=== PATIENT | female | born 1940 | race Caucasian/White ===

== ENCOUNTER → 2020-03-18 | Day surgery (SDC) | payer MEDICARE, OTHER ==
[~2020-03-18] MED LIST: COLESEVELAM HC625 MG PO; NORCO 5-325 TA1 EAC2 PO
--- NOTE | ~2020-03-18 | OP ---
[facility] [address] [place] [address] OPERATIVE REPORT Name: RUTH ANN SANCHEZ Saul Room: [facility].#: [id number] Admission: 03/18/20 Attend Phys: Rufus Roberts Discharge: Date of : 42 Report #: [id number] THIS REPORT FOR: //name// cc: ALFONSO CANTOR NP, RUTENDO NP ~ CC: Rufus CANTOR DATE OF SERVICE: 03/18/2020 PREOPERATIVE DIAGNOSIS: Appendiceal mass. POSTOPERATIVE DIAGNOSIS: Appendiceal mass. OPERATION: Laparoscopic appendectomy. SURGEON: Rufus Roberts MD ANESTHESIA: General. ESTIMATED BLOOD LOSS: Minimal. SPECIMEN: Appendix. DESCRIPTION OF PROCEDURE: After informed consent was obtained, the patient was brought to the operating room and placed supine. SCDs were placed and working, preoperative antibiotics were administered, general anesthesia was induced. The abdomen was prepped and draped in the usual sterile fashion. A 5 mm incision was made in the left upper quadrant. A 5 mm trocar was placed under direct vision. Pneumoperitoneum was established. A right-sided 10 mm trocar and a left-sided 5 mm trocar was placed. The appendix was visualized in the right lower quadrant. It had a mucinous mass at the tip. The appendix was then grasped and retracted anteriorly. The mesoappendix was ligated with a DRU choi load stapler. The base of the appendix was stapled off with a DRU blue load stapler. It was placed into an Endopouch and removed. The fascia in the right upper quadrant was closed with a pjdxod-tv-kfdzv 0 Vicryl. Skin was closed with 4-0 Monocryl. Incisions were sealed with Dermabond. COMPLICATIONS: [place] [address] OPERATIVE REPORT Name: RUTH ANN SANCHEZ Room: [facility]#: [id number] Admission: 03/18/20 Attend Phys: Rufus Roberts Discharge: Date of : 42 Report #: [id number] DISPOSITION: The patient was taken to recovery in satisfactory condition. By: 1113 1119Rufus Roberts MD /john
[2020-03-18 09:03] LABS: HEMATOCRIT 40.1 % (37.0-47.0); HEMOGLOBIN 13.6 gm/dL (12.0-15.0); MCH 30.4 pg (26.0-34.0); MCHC 33.8 g/dL (28.0-37.0); MCV 89.8 fL (80.0-100.0); MPV 6.8 fl. (7.2-11.1); RBC 4.47 mil/uL (4.20-5.00); RDW-CV 14.5 % (10.5-14.5); WBC 6.5 thou/uL (4.0-11.0)
[2020-03-18 09:05] LABS: CALCIUM 9.4 mg/dL (8.5-10.1); CREATININE 1.1 mg/dL (0.6-1.3); POTASSIUM 4.2 mmol/L (3.5-5.1)
--- NOTE | 2020-03-18 13:08 | EKG ---
[place] [address] ELECTROCARDIOGRAM REPORT Name: RUTH ANN SANCHEZ Room: [facility]#: [id number] Admission: 03/18/20 Attend Phys: Rufus Mcelroy Discharge: Date of : 42 Date of Service: 03/18/20 1259 Report #: [id number] THIS REPORT FOR: //name// [facility] Test Date: 2020-03-18 Test Time: 12:59:52 Pat Name: RUTH ANN SANCHEZ Department: Room: Gender: Product Scientist: : 1940 Requested By: Rufus Roberts Order Number: [id number] MD: Hakan Humphreys Measurements Intervals [place] Rate: 57 P: 85 [place]: 139 QRS: 44 QRSD: 81 T: 70 QT: 447 QTc: 436 Interpretive Statements Sinus rhythm No previous ECG available for comparison Electronically Signed On 03-18-2020 13:08:14 CDT by Hakan Humphreys [email or web address] <ELECTRONICALLY SIGNED> By: Hakan Humphreys MD, [facility] 03/18/20 1308 1259 58 Hakan Humphreys MD, FACC /EPI
--- NOTE | 2020-03-18 16:01 | EKG ---
[place] [address] ELECTROCARDIOGRAM REPORT Name: RUTH ANN SANCHEZ Room: [facility]#: [id number] Admission: 03/18/20 Attend Phys: Rufus Mcelroy Discharge: Date of : 42 Date of Service: 03/18/20914 Report #: [id number] THIS REPORT FOR: //name// [facility] Test Date: 2020-03-18 Test Time: 09:15:36 Pat Name: RUTH ANN SANCHEZ Department: Room: Gender: Seasonal Warehouse Associate: ALESSANDRA : 1940 Requested By: Anne-Marie Carmen Order Number: [id number] MD: Eldon Thompson Measurements Intervals [place] Rate: 78 P: 87 MO: 128 QRS: -3 QRSD: 82 T: 63 QT: 380 QTc: 433 Interpretive Statements Sinus rhythm No previous ECG available for comparison Electronically Signed On 03-18-2020 16:01:41 CDT by Eldon Thompson [email or web address] <ELECTRONICALLY SIGNED> By: Eldon Thompson MD, [facility] 03/18/20 1601 4 4 Eldon Thompson MD, FACC /EPI
== END | disposition home or self-care (01) ==
LOC: M.SUR
PROVIDERS: ATTEND Surgery
DX: K38.8 Other specified diseases of appendix (principal); Z79.899 Other long term (current) drug therapy; Z98.890 Other specified postprocedural states

== ENCOUNTER → 2020-05-19 | Outpatient (CLI) | payer MEDICARE, OTHER ==
[~2020-05-19] MED LIST changes: +VITAMIN D325 MC3 PO; +ZINC SULFATE220 MG PO
== END ==
LOC: M.LAB 08:45
PROVIDERS: ATTEND Surgery
DX: Z01.812 Encounter for preprocedural laboratory examination (principal); Z20.828 Contact with and (suspected) exposure to other viral communicable diseases; R19.00 Intra-abdominal and pelvic swelling, mass and lump, unspecified site

== ENCOUNTER 2020-05-24 06:09 | Inpatient (IN) | payer MEDICARE, OTHER ==
[~2020-05-24] VITALS: Ht 162.6 cm; Wt 59.0 kg
[2020-05-24 06:53] LABS: ABSOLUTE EOSINOPHILS 0.1 thou/uL (0.0-0.7); ABSOLUTE LYMPHOCYTES 1.9 thou/uL (0.8-5.3); ABSOLUTE MONOCYTES 0.5 thou/uL (0.0-1.2); ABSOLUTE NEUTROPHILS 2.8 thou/uL (1.6-8.1); BASOPHILS 0.8 %; EOSINOPHILS 1.6 %; HEMATOCRIT 36.7 % (37.0-47.0); LYMPHOCYTES 34.6 %; MCH 29.4 pg (26.0-34.0); MCHC 32.6 g/dL (28.0-37.0); MCV 90.4 fL (80.0-100.0); MONOCYTES 10.1 %; MPV 6.7 fl. (7.2-11.1); NUCLEATED RBCS 0 /100WBC; PLATELET COUNT* 243 thou/uL (150-400); POLYS 52.9 %; RBC 4.06 mil/uL (4.20-5.00); RDW-CV 14.1 % (10.5-14.5); WBC 5.3 thou/uL (4.0-11.0)
[2020-05-24 07:00] LABS: CALCIUM 8.8 mg/dL (8.5-10.1); CREATININE 0.9 mg/dL (0.6-1.3); POTASSIUM 3.8 mmol/L (3.5-5.1)
[2020-05-24 07:17] VITALS: BP 149/84
[2020-05-24 11:17] VITALS: BP 115/60
--- NOTE | 2020-05-24 11:23 | NUR ---
PT ADMITTED. PT RESTING IN BED. FALL RISK PRECAUTIONS IN PLACE. HOURLY ROUNDING COMPLETED. WILL CONTINUE TO MONITOR.
--- NOTE | 2020-05-24 12:35 | OP ---
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 OPERATION: Laparoscopic ileocecectomy. SURGEON: Rufus Roberts MD ANESTHESIA: General. ESTIMATED BLOOD LOSS: 20 mL. SPECIMEN: Cecum and terminal ileum. DESCRIPTION OF PROCEDURE: After informed consent was obtained, the patient was brought to the operating room and placed supine. SCDs were placed and working, preoperative antibiotics were administered, general anesthesia was induced. The abdomen was prepped and draped in the usual sterile fashion. This was after a Judd catheter was placed. A laparoscope was inserted and an epigastric 5 mm port and a lower quadrant 5 mm port were placed. The right colon was then visualized. It was retracted medially. I incised white line of Toldt. This allowed for medial mobilization of the cecum and ascending colon. The lateral attachments of the terminal ileum were taken down with the cautery. This allowed for good movement of the cecum. The laparoscope was removed. I then extended the incision at the umbilicus superiorly approximately 2 cm. A wound protector was placed. I exteriorized the cecum and the terminal ileum. Cecum was then transected with a DRU blue load stapler taking approximately 6 cm of cecum. Ten centimeters of ileum were measured off and the small bowel was transected at that site. The mesentery was ligated using the LigaSure device. The specimen was removed. The side eehw-zt-aoat functional end-to-end anastomosis was then created. The terminal ileum and the colon were brought into apposition [id number] [address] OPERATIVE REPORT Name: RUTH ANN SANCHEZ Room: [address] IN [facility].#: [id number] Admission: 05/24/20 Attend Phys: Rufus Roberts Discharge: Date of : 42 Report #: [id number] stapled with a DRU-75 stapler. The common enterocolostomy was then stapled off with a DRU blue load stapler as well. The anastomosis was widely patent. There were no crossing staple lines. The anastomosis was then placed back into the abdomen. The fascia was then closed with a running 0 PDS. The skin was then closed with 4-0 Monocryl. Incisions were dressed with Steri-Strips and gauze. COMPLICATIONS: None. DISPOSITION: The patient was taken to recovery in satisfactory condition. <ELECTRONICALLY SIGNED> By: Rufus Roberts MD 05/24/20 1235 0915 [id number] Roberts MD /nt
[2020-05-24 15:36] VITALS: BP 120/60
--- NOTE | 2020-05-24 17:15 | NUR ---
PT REMAINED ALERT AND ORIENTED. PT WAS DROWSY UPON ADMITTANCE TO FLOOR. PT WOKE UP UPSET STATING NO ONE HAD BEEN IN HER ROOM ALL DAY, WHEN ASKING PATIENT IF SHE REMEMBERED ME OR THE OTHER NURSE IN HER ROOM SETTING HER UP, PT STATED SHE DID NOT REMEMBER. PHYSICIAN CALLED AND WAS TRANSFERRED TO PATIENTS ROOM TO CALM HER DOWN AND TALK TO HER AND GIVE HER AN UPDATE. PT WAS PLEASED WITH THIS. PT VERY PECULIAR ABOUT GERMS. AID WENT INTO ROOM TO BRING HER ICE CHIPS AT HER REQUEST, AID HAD TO THROW OUT ICE CHIPS AND GET A NEW CUP OF ICE CHIPS BECAUSE SHE WAS NOT WEARING GLOVES WHEN TOUCHING CUP. DUBOSE IN PLACE. PT C/O PAIN, MEDS GIVEN ORDERED. PT DOES NOT WISH TO BE WOKEN UP WHEN SHE IS SLEEPING. FALL RISK PRECAUTIONS IN PLACE. HOURLY ROUNDING COMPLETED. WILL CONTINUE TO MONITOR.
[2020-05-24 20:55] VITALS: BP 103/52
[2020-05-25 00:32] VITALS: BP 99/57
--- NOTE | 2020-05-25 06:00 | NUR ---
PT SLEPT ALL SHIFT. PAIN APPEARS TO BE WELL MANAGED. SHE IS ALERT AND ORIENTED 2L - NC. RECEIVED ALL ABX AND MEDS SCHEDULED.
[2020-05-25 07:35] VITALS: BP 105/46
--- NOTE | 2020-05-25 11:54 | NUR ---
Pt is A&O. Resides at home with her . Independent. No DME. No hx of HH or SNF. Pt had surgery yesterday. Goal is home at dc, Pt does not anticipate any dc needs. CM to f/u closer to dc to see if Pt will want HH.
[2020-05-25 11:55] VITALS: BP 103/55
--- NOTE | 2020-05-25 16:47 | NUR ---
PT REMAINED ALERT AND ORIENTED. PT UP IN ROOM WALKING. PT C/O PAIN, MEDS GIVEN ORDERED. FALL RISK PRECAUTIONS IN PLACE. HOURLY ROUNDING COMPLETED. WILL CONTINUE TO MONITOR.
[2020-05-25 17:11] VITALS: BP 136/55
[2020-05-25 21:40] VITALS: BP 150/73
[2020-05-26 04:23] LABS: CREATININE 0.9 mg/dL (0.6-1.3); POTASSIUM 4.2 mmol/L (3.5-5.1)
--- NOTE | 2020-05-26 06:09 | NUR ---
PT SLEPT FAIRLY WELL OVERNIGHT. UP WITH SBA AMBULATING IN ROOM. ABD DRSG CDI, LAP SITE CDI. ROOM AIR. LHAND IVF INFUSING PER PUMP, ABX GIVEN ORDERED. UP WITH SBA TO BSC TO VOID. TOLERATING CLEARS WITHOUT N/V. HOPEFUL FOR DIET ADVANCEMENT TODAY. DENIES PASSING GAS. IV PAIN MED GIVEN X2 THIS SHIFT FOR ABD PAIN WITH MOVEMENT. ABLE TO USE CALL LITE AND MAKE NEEDS KNOWN.
[2020-05-26 08:20] VITALS: BP 157/88
[2020-05-26 15:47] VITALS: BP 125/71
--- NOTE | 2020-05-26 17:06 | PATH ---
[address] [address] PATHOLOGY RPT PROCEDURE Name: RUTH ANN SANCHEZ Room: [address] IN .R.#: [id number] Admission: 05/24/20 Date of : 42 Discharge: Report #: [id number] Path Case #: [id number] [facility] Accession Number: [id number] . 01 Material submitted: . colon - PORTION OF COLON . 01 Clinician provided ICD-10: C18.2 . 01 Clinical history: . RESECTION OF RIGHT LARGE INTESTINE PERC, ENDO APPR MASS OF APPENDIX . 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 - Three benign pericolic lymph nodes, 1 with black pigment tattooing (0/3). See comment. (MAXWELL:erich; 05/26/2020) MBR 05/26/2020 1340 Local . 02 Comment: One of the tissue fragments submitted in A7 shows a tubular adenoma and another is noted to be free floating at the luminal surface in a section from the appendiceal orifice (A3). (MAXWELL:erich; 05/26/2020) . 02 Electronically signed: . Josesito Georges MD, Pathologist NPI- [id number] . 01 Gross description: . The specimen is received in formalin, labeled "TonnyRainagy, portion of colon" and consists of a segment of terminal ileum measuring 7.5 cm in length and up to 2.0 cm in diameter with contiguous cecum measuring 8.3 cm in length and 4.8 cm in diameter. There is pericolic fat measuring 1.8 cm. Both margins have a staple line. The terminal ileum serosa is pink-stewart with focal hemorrhage. The cecum is pink-stewart with focal hemorrhage and adhesions at the base of the cecum. The appendix is absent and this area is inked black. Opening reveals a pink-stewart terminal ileum mucosa with no masses or lesions. The cecum mucosa is pink-stewart with 2 polyps measuring 0.2 and 0.3 cm respectively. Also received in the bottom the container is a segment of gastrointestinal tissue with 2 separate lines of cat measuring 3.6 x 2.5 x 1.1 cm. Opening shows a pink mucosa with no gross lesions. Present within the pericolic fat are [address] [place] [address] PATHOLOGY RPT PROCEDURE Name: RUTH ANN SANCHEZ Room: [address] IN [facility]#: [id number] Admission: 05/24/20 Date of : 42 Discharge: Report #: [id number] Path Case #: [id number] identifiable lymph nodes. Bulk Sugar Handler sections are submitted as follows: . A1: Proximal margin A2: Distal margin A3-A6: Entire appendiceal orifice A7: Polyps A8: Additional segment of gastrointestinal tissue A9: One bisected lymph node A10: One intact lymph node and one black inked bisected lymph node (SDY; 05/25/2020) SYU/SYU 05/26/2020 1336 Local . 02 Pathologist provided ICD-10: D12.0, D12.6 . 02 CPT . 173770 Specimen Comment: A courtesy copy of this report has been sent to [phone] Specimen Comment: Report sent to Performed at: [address], [place] [id number] MD Henrique Fuentes MD Phone: [phone] Performed at: 02 [facility] [address], [place], [place] [id number] MD Josesito Georges MD Phone: [phone]
--- NOTE | 2020-05-26 17:08 | NUR ---
PATIENT UP AND AMBULATING AROUND ROON WITHOUT DIFFICULTY. ADVANCED TO FULL LIQUID DIET, TOLERATING. OK TO SHOWER. IV RESTARTED TO LEFT FA, PREVIOUS IV LEAKING. IVF AND SCHED ABX INFUSED ORDERED. PATIENT STARTED ON PO PRN HYDROCODONE, GIVEN X 1 THIS SHIFT WITH GOOD RELIEF NOTED. DRESSING TO ABD REMAINS INTACT. PATIENT HOPING TO DISCHARGE SOON.
[2020-05-26 19:55] VITALS: BP 145/80
[2020-05-27 05:20] VITALS: BP 151/65
--- NOTE | 2020-05-27 07:00 | NUR ---
PT A&OX4, VSS ON ROOM AIR - AT 0640 PT C/O SOA, PT PLACED ON 1L NC. PT UP AD JAD, IV FLUIDS INFUSING ORDERED, PAIN MEDS REQUESTED AND GIVEN ORDERED, HOURLY ROUNDINGS COMPLETE, WILL CONTINUE TO MONITOR.
[2020-05-27 07:30] VITALS: BP 169/84
--- NOTE | 2020-05-27 18:17 | NUR ---
A&OX 4, PWD. LUNGS CLEAR, HEART TONES REG. +BS X 4 QUADS. PEDAL PULSES PRESENT NO EDEMA NOTED. 2+ PULSES. TOOK TYLENOL FOR PAIN AND STATES IT IS TOLERABLE NOW. ON ROOM AIR NO LONGER SOA. HAD SMALL BM TODAY. IV LEFT FOREARM NS 20MEQ KCL AT 50MLS/HR. CALF SCD'S ON THIS AM AND AFTERNOON. NO C/O AT THIS TIME. DID STATE FOOD SERVERS SHOULD RETANA GLOVES. DIET ADVANCED TO REGULAR. ABLE TO EAT SMALL AMOUNTS AND TOLERATE IT WITHOUT NAUSEA AND VOMITING. WILL CONTINUE TO MONITOR.
[2020-05-27 19:50] VITALS: BP 132/73
[2020-05-28 08:23] VITALS: BP 179/85
[2020-05-28 11:43] VITALS: BP 179/85
[2020-05-28 12:18] VITALS: BP 179/85
--- NOTE | 2020-05-28 12:57 | NUR ---
PT DISCHARGED HOME. COPY OF DISCHARGE PAPERWORK TO PT WITH EXPLAINATION. PT VERBALIZED UNDERSTANDING. NO NEW PRESCRIPTIONS. IV ACCESS REMOVED.
[2020-05-28 12:58] VITALS: BP 179/85
== END 2020-05-28 12:59 | disposition home or self-care (01) | DRG 331 ==
LOC: M.TBA 06:09 → M.3W 06:09 → M.PRE 06:10 → M.3W 11:02
PROVIDERS: Anesthesiology; ADMIT Surgery; ATTEND Surgery
PROC: 0DBH4ZZ Excision of Cecum, Percutaneous Endoscopic Approach (ICD-10-PCS; principal; 2020-05-24)
DX: C18.1 Malignant neoplasm of appendix (principal); Z88.8 Allergy status to other drugs, medicaments and biological substances; Z90.710 Acquired absence of both cervix and uterus; Z85.42 Personal history of malignant neoplasm of other parts of uterus; Z92.3 Personal history of irradiation; Z79.899 Other long term (current) drug therapy